=== PATIENT | male | born 1985 | race Caucasian/White ===

== ENCOUNTER 2023-04-17 14:04 | Emergency (ER) | payer OTHER ==
[~2023-04-17] VITALS: Ht 182.9 cm; Wt 99.8 kg
[2023-04-17] MEDS ORDERED: propofoL 100 ML IV ONE (14:16)
[2023-04-17] MEDS ORDERED: propofoL 100 ML IV SCH (14:20)
[2023-04-17] MEDS ORDERED: FentaNYL Citrate 50 MCG/ML 2 ML Injection IV PRN (14:20)
[2023-04-17] MEDS ORDERED: Diazepam 5 MG / ML 2ML SYR IV ONE (14:20)
[2023-04-17 14:29] LABS: BASOPHILS ABSOLUTE AUTO 0.06 K/mm3 (0.00-0.23); BASOPHILS PERCENT AUTO 0 % (0-2); EOSINOPHILS ABSOLUTE AUTO 0.02 K/mm3 (0.00-0.68); EOSINOPHILS PERCENT AUTO 0 % (0-6); Hemoglobin 16.1 g/dL (13.5-17.5); IMMATURE GRAN ABSOLUTE AUTO 0.25 K/mm3 (0.00-0.10); IMMATURE GRAN PERCENT AUTO 1 % (0-1); LYMPHOCYTES ABSOLUTE AUTO 0.71 K/mm3 (0.84-5.20); LYMPHOCYTES PERCENT AUTO 4 % (21-46); MONOCYTES ABSOLUTE AUTO 0.85 K/mm3 (0.16-1.47); MONOCYTES PERCENT AUTO 5 % (4-13); Mean Corpuscular HGB Conc 32.9 g/dL (31.5-36.5); Mean Corpuscular Volume 88 fL (80-100); Mean Platelet Volume 10.3 fL (9.1-12.4); NEUTROPHILS PERCENT AUTO 90 % (41-73); Platelet Count 184 K/mm3 (150-400); RDW Coefficient Variation 12.2 % (11.7-14.2); RDW Standard Deviation 39.9 fL (35.1-46.3); Red Blood Cell Count 5.55 M/mm3 (4.30-5.90); White Blood Cell Count 17.99 K/mm3 (4.00-11.30)
[2023-04-17 14:31] LABS: Source, Urine Foley catheter
[2023-04-17 14:35] LABS: Calcium, Ionized (POC) 1.25 mmol/L (1.10-1.46); Chloride (POC) 103 mmol/L (98-108); Creatinine (POC) 1.6 mg/dL (0.8-1.3); Glucose (ISTAT POC) 229 mg/dL (70-99); Hemoglobin (POC) 16.3 g/dL (13.5-17.5); Potassium (POC) 5.3 mmol/L (3.5-5.5); Sodium (POC) 141 mmol/L (135-148); Total CO2 (POC) 31 mmol/L (21-32)
[2023-04-17 14:38] LABS: Appearance, Urine Hazy (Clear); Bilirubin, Urine Neg (Neg); Blood, Urine 5+ (Neg); Color, Urine Yellow (P-Yellow); Glucose Qualitative, Urine 3+ (Neg); Ketones, Urine 1+ (Neg); Leukocyte Esterase, Urine Neg (Neg); Nitrite, Urine Neg (Neg); Protein, Urine 3+ (Neg); Urobilinogen, Urine NORM (Normal)
[2023-04-17 14:42] LABS: Albumin, Blood 4.5 g/dL (3.4-5.0); Albumin/Globulin Ratio 1.4 (0.8-1.8); Bilirubin, Total 0.4 mg/dL (0.1-1.0); Bun/Creatinine Ratio 16.7 (12.0-20.0); Calcium, Blood 9.2 mg/dL (8.5-10.1); Creatinine, Blood 1.38 mg/dL (0.60-1.20); Globulin, Blood 3.3 g/dL (2.2-4.0); Magnesium, Blood 2.9 mg/dL (1.6-2.4); Potassium, Blood 5.4 mmol/L (3.5-5.5); Total Protein, Blood 7.8 g/dL (6.4-8.2)
[2023-04-17] MEDS ORDERED: levETIRAcetam 2,000 MG in NS 100 ML IV ONE ×2 (14:55→15:15)
[2023-04-17 14:57] LABS: White Blood Cells, Urine 0-2 /hpf (0-5)
[2023-04-17 14:58] LABS: Amorphous Mod (0-Heavy); Bacteria Rare /hpf; Mucus Light (0-Heavy); Squamous Epithelial Cells Rare /hpf (Few)
[2023-04-17 14:59] LABS: PCO2 Arterial 51.7 mmHg (35-45); PO2 Arterial 64.5 mmHg (80-100); pH Blood Arterial 7.29 (7.35-7.45)
[2023-04-17 15:10] LABS: U Amphetamine Screen Not Detected; U Barbituate Screen Not Detected; U Benzodiazapine Screen Not Detected; U Buprenorphine Screen Not Detected; U Cannabinoids Screen DETECTED; U Cocaine Screen Not Detected; U Methadone Screen Not Detected; U Methamphetamine Screen Not Detected; U Opiates Screen Not Detected; U Oxycodone Screen Not Detected; U Phencyclidine Screen Not Detected
[2023-04-17] MEDS ORDERED: NS 1,000 ML IV SCH (16:20)
[2023-04-17] MEDS ORDERED: Midazolam HCl 1MG / ML 2ML Vial XX ONE (22:27)
[2023-04-17] MEDS ORDERED: Etomidate 2MG / ML 10ML Vial IV ONE (22:27)
[2023-04-17] MEDS ORDERED: Rocuronium Bromide 10 MG/ML 5ML Injection IV ONE (22:27)
[2023-04-19 11:11] LABS: LAMOTRIGINE 0.9 ug/mL (3.0-15.0)
[2023-04-19 11:22] LABS: KEPPRA (LEVETIRACETAM) 89 ug/mL (10-40)
== END 2023-04-17 18:03 | disposition short-term general hospital (02) ==
LOC: ER 14:04
PROVIDERS: Student in an Organized Health Care Education/Training Program
DX: G40.901 Epilepsy, unspecified, not intractable, with status epilepticus (principal); C71.9 Malignant neoplasm of brain, unspecified; J96.92 Respiratory failure, unspecified with hypercapnia; E87.29 Other acidosis; Z79.899 Other long term (current) drug therapy
CPT/HCPCS: 31500; 36600; 51702; 70450; 71045; 80047; 80053; 80175; 80177; 81001; 82803; 82947; 83735; 84146; 85014; 85025; 93005; 93010; 94002; 96365-59; 96366-59; 99291-25; 99292; J1953; J2250; J2704; J3010; J7030; J7060